=== PATIENT | female | born 1980 | race Hispanic/Latino ===

== ENCOUNTER 2021-01-04 22:20 | Inpatient (IN) | payer SELFPAY ==
--- OUTSIDE RECORDS SUMMARY | 2021-01-04 22:23 | XMS REPORT | Continuity of Care Document ---
:[address] [facility] t Address [address] [place] [address] Care Team Providers Name Role Phone Unavailable Unavailable Unavailable Problems This patient has no known problems. Allergies, Adverse Reactions, Alerts This patient has no known allergies or adverse reactions. Medications This patient has no known medications. Procedures This patient has no known procedures. Encounters Start End Encounter Admission Attending Care Care Encounter Source Date/Time Date/Time Type Type Clinicians Facility Department ID 2020-09-04 2020-09-04 Outpatient [facility] [id number] 00:00:00 00:00:00 [facility] 2020-02-01 2020-02-01 [facility] [id number] 09:00:00 09:00:00 [facility] Results This patient has no known results.
[2021-01-05] MEDS ORDERED: METHYLPREDNISOLONE 125 MG INJ ONE ×2 (00:16→20:25)
[2021-01-05] MEDS ORDERED: ONDANSETRON 4 MG (ODT) TAB ONE (00:16)
[2021-01-05] MEDS ORDERED: NA CHLORIDE 0.9% 1,000 ML ONE ×2 (00:16→02:34)
[2021-01-05] MEDS ORDERED: BENZONATATE 100 MG CAP PO ONE (00:16)
[2021-01-05 00:34] LABS: Absolute Lymphocytes (CBC) 0.9 K/uL (0.7-4.9); Basophils % 0.2 % (0-1.3); Hematocrit 41.6 % (36.0-45.0); MPV 7.9 fL (7.6-11.3); RBC Red Blood Cell Count 4.85 M/uL (3.86-4.86)
[2021-01-05 00:37] LABS: ALT/SGPT 219 U/L (12-78); AST/SGOT 191 U/L (15-37); Albumin 3.4 g/dL (3.4-5.0); Alkaline Phosphatase 111 U/L (45-117); BUN Blood Urea Nitrogen 9 mg/dL (7-18); Bicarbonate 25 mmol/L (21-32); Bilirubin Direct 0.1 mg/dL (0-0.2); Bilirubin Total 0.3 mg/dL (0.2-1.0); Ferritin 1669.7 ng/mL (8-388); Glucose Level 145 mg/dL (74-106); Magnesium 1.9 mg/dL (1.8-2.4); NT PRO-BNP 26 pg/mL (<125); Potassium 3.7 mmol/L (3.5-5.1); Protein, Total 7.9 g/dL (6.4-8.2); Sodium Level 138 mmol/L (136-145); Troponin (Emerg Dept Use Only) < 0.02 ng/mL (0.0-0.045)
[2021-01-05 00:39] LABS: Protime INR 1.15
[2021-01-05 01:31] LABS: Urine Blood 2+ (Negative); Urine Glucose Negative (Negative); Urine Protein 2+ (Negative); Urine Specific Gravity 1.025 (1.005-1.030); Urine pH 5.5 (5.0-7.0)
[2021-01-05 01:41] LABS: Urine Specific Gravity/Preg 1.025 (1.005-1.030)
[2021-01-05 02:28] LABS: Blood Gas Oxyhemoglobin 91.3 % (94-97); Blood O2 Saturation 92.8 % (92-98.5)
[2021-01-05] MEDS ORDERED: CEFTRIAXONE/SWI 1gm 1 GM/10 ML SYR ONE (02:34)
--- NOTE | 2021-01-05 02:35 | P.HP ---
Certification for Inpatient Patient admitted to: Inpatient With expected LOS: >2 Midnights Patient will require the following post-hospital care: None Practitioner: I am a practitioner with admitting privileges, knowledge of patient current condition, hospital course, and medical plan of care. Services: Services provided to patient in accordance with Admission requirements found in Title 42 Section 412.3 of the Code of Federal Regulations Patient History Date of Service: 01/05/21 Reason for admission: COVID-19 pneumonia History of Present Illness: 40-year-old female with history of asthma, obesity presents emergency department for shortness of breath. Patient reports increasing shortness of breath over the course of last 1 week. Patient tested positive for Covid today. Labs significant for glucose 145 ferritin 1669 AST 191 ALT 219 C-reactive protein 39 D-dimer 584 platelet count 110. Patient saturating in the high 80s on room air, currently tolerating nasal cannula at 2 to 3 L, ED provider wishes to admit for further evaluation and management. Allergies No Known Allergies Allergy (Unverified 10/03/16 08:47) Home Medications: Tramadol HCl [Ultram] 50 mg PO Q6HP PRN 10/03/16 - Past Medical/Surgical History -: Asthma -: Hysterectomy -: Psychosocial/ Personal History: Lives at home with children, single mother, unemployed - Family History Mother -: Diabetes - Social History Smoking Status: Never smoker Alcohol use: No CD- Drugs: No Caffeine use: Yes Place of Residence: Home Review of Systems 10-point ROS is otherwise unremarkable General: Weakness, Malaise Respiratory: Cough, Dry, Shortness of Breath, SOB with Excertion Physical Examination - Physical Exam General: Alert, In no apparent distress, Obese HEENT: Atraumatic, PERRLA, Mucous membr. moist/pink, EOMI, Sclerae nonicteric Neck: Supple, 2+ carotid pulse no bruit, No LAD, Without JVD or thyroid abnormality Respiratory: Normal air movement, Diminished Cardiovascular: Regular rate/rhythm, Normal S1 S2 Gastrointestinal: Normal bowel sounds, No tenderness Musculoskeletal: No tenderness Integumentary: No rashes Neurological: Normal gait, Normal speech, Normal strength at 5/5 x4 extr, Normal tone, Normal affect Lymphatics: No axilla or inguinal lymphadenopathy - Studies Laboratory Data (last 24 hrs) 01/04/21 23:59: PT 13.2 H, INR 1.15 01/04/21 23:59: WBC 5.00, Hgb 14.2, Hct 41.6, Plt Count 110 L 01/04/21 23:59: Sodium 138, Potassium 3.7, BUN 9, Creatinine 0.68, Glucose 145 H, Magnesium 1.9, Total Bilirubin 0.3, AST 191 H, ALT 219 H, Alkaline Phosphatase 111 Microbiology Data (last 24 hrs): 01/04/21 23:07 Nasopharnyx Influenza Type A Antigen Screen - Final 01/04/21 23:07 Nasopharnyx Influenza Type B Antigen Screen - Final 01/04/21 23:07 Throat Group A Streptococcus Rapid Screen - Final Assessment and Plan - Plan Assessment: Acute hypoxic respiratory failure secondary to COVID-19 pneumonia complicated with obesity, history of asthma Plan: Acute hypoxic respiratory failure secondary to COVID-19 pneumonia complicated with obesity, history of asthma: Continue with IV steroids, oral supplements, supplemental oxygen as needed, daily room air saturations, room air saturations for home O2. Patient's liver enzymes mildly elevated, patient not complaining of any abdominal pain possible related to fatty liver disease, urine nitrate positive no signs or symptoms of UTI at this time. Will hold off on antibiotic therapy. If patient maintains current clinical status could possibly be discharged in the next 24 to 48 hours on home oxygen. Patient concerned as she is a single mother and has problems obtaining care for her children at home. DVT PPX: Lovenox Code status: Full Discharge Plan: Home Plan to discharge in: 48 Hours - Advance Directives Does patient have a Living Will: No Does patient have a Durable POA for Healthcare: No - Code Status/Comfort Care Code Status Assessed: Yes (Full code) Critical Care: No Time Spent Managing Pts Care (In Minutes): 55
--- NOTE | 2021-01-05 02:40 | ER ---
Nurse's Notes [facility] Name: Latonya Ivy Age: 40 yrs Sex: Female : 1980 Arrival Date: 01/04/2021 Time: 22:20 Bed 15 Private MD: Diagnosis: Other viral pneumonia;Hypoxemia;SARS-associated coronavirus as the cause of diseases classified elsewhere;UTI/ Urinary tract infection, site not specified Presentation: 01/04 22:50 Chief complaint: Patient states: Pt stated difficulty breathing began around 12/29/20. vg1 Pt c/o cough that is productive/dry and shortness of breath upon exertion. States chest pain with deep inhalation and cough. Denies NVD. Coronavirus screen: Client denies travel out of the [place] in the last 14 days. Client presents with at least one sign or symptom that may indicate coronavirus-19. Standard/surgical mask placed on the client. Ebola Screen: Patient negative for fever greater than or equal to 101.5 degrees Fahrenheit, and additional compatible Ebola Virus Disease symptoms. Initial Sepsis Screen: Does the patient meet any 2 criteria? No. Patient's initial sepsis screen is negative. Does the patient have a suspected source of infection? No. Patient's initial sepsis screen is negative. Risk Assessment: Do you want to hurt yourself or someone else? Patient reports no desire to harm self or others. Onset of symptoms was December 29, 2020. 22:50 Method Of Arrival: Ambulatory vg1 22:50 Acuity: NILSON 3 vg1 Triage Assessment: 22:53 General: Appears in no apparent distress. uncomfortable, Behavior is calm, cooperative. vg1 Pain: Complains of pain in chest Pain does not radiate. Pain currently is 10 out of 10 on a pain scale. Respiratory: Reports shortness of breath on exertion cough that is productive, dry, Onset: The symptoms/episode began/occurred 12/29/20, the patient has moderate shortness of breath. 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 - Social history:: Smoking status: Patient denies any tobacco usage or history of. Screenin/31 00:12 Abuse screen: Denies threats or abuse. Nutritional screening: No deficits noted. ap3 Tuberculosis screening: No symptoms or risk factors identified. Fall Risk None identified. Assessment: 00:11 General: Appears uncomfortable, Behavior is calm, cooperative, appropriate for age. ap3 General: Reports chills for fever for feeling ill for fatigue for. Pain: Denies pain. Neuro: Level of Consciousness is awake, alert, obeys commands, Oriented to person, place, time, situation, Appropriate for age Moves all extremities. Gait is steady, Speech is normal. Cardiovascular: Capillary refill < 3 seconds Patient's skin is warm and dry. Rhythm is regular. Respiratory: Airway is patent Respiratory effort is even, unlabored, Respiratory pattern is regular, symmetrical, Breath sounds are clear in left posterior upper lobe and right posterior upper lobe Breath sounds are diminished in left posterior lower lobe and right posterior middle lobe. GI: No signs and/or symptoms were reported involving the gastrointestinal system. : No signs and/or symptoms were reported regarding the genitourinary system. 00:57 Reassessment: patient provided with urine specimen cup, wipes, bedside commode, and ap3 education on clean catch. patient verbalized understanding. 01:43 Reassessment: Patient and/or family updated on plan of care and expected duration. Pain ap3 level reassessed. Patient is alert, oriented x 3, equal unlabored respirations, skin warm/dry/pink. 02:21 Reassessment: RT at bedside. ap3 Vital Signs: 01/04 22:50 BP 108 / 69; Pulse 114; Resp 22; Temp 99.0(O); Pulse Ox 96% ; Weight 127.01 kg; Height vg1 5 ft. 4 in. (162.56 cm); Pain 10; 01/05 00:13 Pulse 99; Resp 19; Pulse Ox 97% on R/A; ap3 00:48 BP 96 / 67; Pulse 88; Resp 25; Pulse Ox 92% on R/A; ap3 01:43 BP 96 / 65; Pulse 83; Resp 21; Pulse Ox 94% on R/A; ap3 02:20 BP 100 / 83; Pulse 88; Pulse Ox 86% on R/A; ap3 02:20 Pulse Ox 92% on 4 lpm NC; ap3 07/30 22:50 Body Mass Index 48.06 (127.01 kg, 162.56 cm) vg1 ED Course: 01/04 22:20 Patient arrived in ED. bp1 22:53 Triage completed. vg1 22:53 Arm band placed on. EKG completed in triage. Results shown to MD. vg1 23:29 Awilda Linder, ALVIN is Primary Nurse. ap3 23:33 Deng Daugherty PA is PHCP. cp 23:33 Manjit Angelo MD is Attending Physician. cp 01/05 00:12 Patient has correct armband on for positive identification. Bed in low position. Call ap3 light in reach. Side rails up X2. Adult w/ patient. 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 Door closed. Noise minimized. 00:33 XRAY Chest (1 view) In Process Unspecified. EDMS 01:31 Urine collected: clean catch specimen, deborah colored, urine culture sent to lab. mw2 01:38 CT Chest For PE Angio In Process Unspecified. EDMS 02:23 Admitting physician to see patient. Respiratory care therapist to see patient. ap3 02:38 Addi White is Hospitalizing Provider. cp Administered Medications: 01/04 23:44 CANCELLED (Physician Discretion): Zofran (Ondansetron) 4 mg IVP once; over 2 minutes cp 01/05 00:09 Drug: NS 0.9% 1000 ml Route: IV; Rate: 1000 ml/hr; Site: right antecubital; ap3 02:18 Follow up: IV Status: Completed infusion; IV Intake: 1000ml ap3 00:09 Drug: Tessalon Perle (benzonatate) 200 mg Route: PO; ap3 02:17 Follow up: Response: No adverse reaction ap3 00:09 Drug: Ondansetron 4 mg Route: PO; ap3 02:17 Follow up: Response: No adverse reaction; Nausea is decreased ap3 00:10 Drug: SOLU-Medrol (methylPrednisoLONE) 125 mg Route: IVP; Site: right antecubital; ap3 02:17 Follow up: Response: No adverse reaction ap3 02:16 Drug: Rocephin (cefTRIAXone) 1 grams Route: IV; Rate: calculated rate; Site: right ap3 antecubital; 02:16 Drug: NS 0.9% 1000 ml Route: IV; Rate: 1 bolus; Site: right antecubital; ap3 Intake: 02:18 IV: 1000ml; Total: 1000ml. ap3 Outcome: 02:39 Decision to Hospitalize by Provider. cp 21:55 Patient left the ED. mw Signatures: Dispatcher [employer] EDMS Kiersten Ball RN RN mw Deng Daugherty PA PA cp Prokisch, Amanda, RN RN ap3 Do Pratt mw2 Whitley Rosario RN RN vg1 Radha Moscoso [facility]
--- NOTE | 2021-01-05 02:40 | EDPHYS ---
Physician Documentation [facility] Name: Latonya Ivy Age: 40 yrs Sex: Female : 1980 Arrival Date: 01/04/2021 Time: 22:20 Bed 15 Private MD: ED Physician Manjit Angelo HPI: 01/04 23:10 This 40 yrs old Female presents to ER via Ambulatory with complaints of cp Breathing Difficulty, Chest Pain. 23:10 The patient has shortness of breath at rest. Onset: The symptoms/episode began/occurred cp 6 day(s) ago. Duration: The symptoms are continuous, and are steadily getting worse. The patient's shortness of breath is aggravated by light activity. Associated signs and symptoms: Pertinent positives: chest pain, fever, Pertinent negatives: productive cough, vomiting. Severity of symptoms: in the emergency department the symptoms are unchanged despite home interventions. 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 - Social history:: Smoking status: Patient denies any tobacco usage or history of. ROS: 23:15 Constitutional: Positive for body aches, Negative for chills, fever, poor PO intake. cp 23:15 Eyes: Negative for injury, pain, redness, and discharge. cp 23:15 ENT: Negative for ear pain, sore throat, difficulty swallowing, difficulty handling secretions. 23:15 Cardiovascular: Positive for chest pain, Negative for edema. 23:15 Respiratory: Positive for cough, "sounds productive", shortness of breath, at rest. Negative for wheezing. 23:15 Abdomen/GI: Negative for abdominal pain, nausea, vomiting, and diarrhea. 23:15 Neuro: Negative for altered mental status, dizziness, headache, numbness, syncope, weakness. 23:15 All other systems are negative. Exam: 23:05 ECG was reviewed by the Attending Physician. cp 23:18 Constitutional: The patient appears in no acute distress, alert, awake, cp non-diaphoretic, non-toxic, well developed, well nourished, obese. 23:18 Head/Face: Normocephalic, atraumatic. cp 23:18 Eyes: Periorbital structures: appear normal, Pupils: equal, round, and reactive to light and accomodation, Extraocular movements: intact throughout, Conjunctiva: normal, no exudate, no injection, Sclera: no appreciated abnormality, Lids and lashes: appear normal, bilaterally. 23:18 ENT: External ear(s): are unremarkable, Nose: is normal, Mouth: Lips: moist, Oral mucosa: moist, Posterior pharynx: Airway: no evidence of obstruction, patent. 23:18 Neck: ROM/movement: is normal, is supple, no meningismus, no nuchal rigidity. 23:18 Chest/axilla: Inspection: normal, Palpation: crepitus, is not appreciated, tenderness, that is moderate, of the anterior aspect of right upper chest, anterior aspect of left upper chest and mid-sternal area. 23:18 Cardiovascular: Rate: tachycardic, Rhythm: regular, Heart sounds: murmur, not appreciated, Edema: is not appreciated, JVD: is not appreciated. 23:18 Respiratory: the patient does not display signs of respiratory distress, Respirations: labored breathing, that is mild, intercostal retractions, are absent, Breath sounds: bronchial sounds, that are moderate, are heard diffusely, stridor, is not appreciated, wheezing: is not appreciated. 23:18 Abdomen/GI: Inspection: abdomen appears normal, Palpation: abdomen is soft and non-tender, in all quadrants. 23:18 Back: ROM is normal. 23:18 Neuro: Orientation: to person, place \\T\\ time. Mentation: is normal, Cerebellar function: is grossly normal, Motor: moves all fours, strength is normal, Sensation: is normal. Vital Signs: 22:50 BP 108 / 69; Pulse 114; Resp 22; Temp 99.0(O); Pulse Ox 96% ; Weight 127.01 kg; Height vg1 5 ft. 4 in. (162.56 cm); Pain 1010; 01/05 00:13 Pulse 99; Resp 19; Pulse Ox 97% on R/A; ap3 00:48 BP 96 / 67; Pulse 88; Resp 25; Pulse Ox 92% on R/A; ap3 01:43 BP 96 / 65; Pulse 83; Resp 21; Pulse Ox 94% on R/A; ap3 02:20 BP 100 / 83; Pulse 88; Pulse Ox 86% on R/A; ap3 02:20 Pulse Ox 92% on 4 lpm NC; ap3 01/04 22:50 Body Mass Index 48.06 (127.01 kg, 162.56 cm) [facility] MDM: 01/04 23:38 Patient medically screened. 01/05 00:00 Differential diagnosis: asthma, Bronchitis Myocardial Infarction pneumonia, cp Pneumothorax pulmonary edema, Pulmonary Embolism Sepsis Unstable Angina. 01:31 Data reviewed: vital signs, nurses notes, lab test result(s), EKG, radiologic studies, cp plain films. Test interpretation: by ED physician or midlevel provider: ECG, chest xray shows bilateral pulmonary opacities. 02:35 Counseling: I had a detailed discussion with the patient and/or guardian regarding: the cp historical points, exam findings, and any diagnostic results supporting the discharge/admit diagnosis, lab results, radiology results, the need for further work-up and treatment in the hospital. 02:35 Data interpreted: panel monitor: rate is 88 beats/min, rhythm is regular, cp Interpretation: normal rate, normal rhythm, Pulse oximetry: on 4L(s) per nasal canula, is 92 %. Interpretation: borderline. Plan: O2 by Mask applied. Response to treatment: the patient's symptoms have mildly improved after treatment. 01/04 23:05 Order name: Flu; Complete Time: 00:43 [facility] 01/04 23:05 Order name: Strep; Complete Time: 00: [facility] 01/04 23:44 Order name: Basic Metabolic Panel; Complete Time: 00:43 01/05 00:44 Interpretation: Normal except: GLUC 145; CA 8.1. 01/04 23:44 Order name: CBC with Diff; Complete Time: 00:43 01/05 00:44 Interpretation: Normal except: GUS% 77.3; PLT 110. 01/04 23:44 Order name: LFT's; Complete Time: 00:43 01/05 00:44 Interpretation: Normal except: AST 191; ALT 219; GLOB 4.5; A/G 0.8. 01/04 23:44 Order name: Magnesium; Complete Time: 00:43 01/04 23:44 Order name: NT PRO-BNP; Complete Time: 00:43 01/04 23:44 Order name: PT-INR; Complete Time: 00:43 cp 01/04 23:44 Order name: Troponin (emerg Dept Use Only); Complete Time: 00:43 cp 01/04 23:44 Order name: D-Dimer; Complete Time: 00:43 cp 01/04 23:44 Order name: CRP; Complete Time: 00:43 cp 01/05 00:44 Interpretation: Abnormal: C-REACTIVE PROT 39.00. cp 01/04 23:44 Order name: Ferritin; Complete Time: 00:43 cp 01/05 00:27 Order name: Throat Culture EDMS 01/04 23:44 Order name: XRAY Chest (1 view) cp 01/04 23:44 Order name: EKG; Complete Time: 23:44 cp 01/05 00:45 Order name: CT Chest For PE Angio cp 01/05 00:52 Order name: SARS-COV-2 RT PCR; Complete Time: 02:39 EDMS 01/05 01:30 Order name: Urine Culture 01/05 01:31 Order name: Urine Dipstick-Ancillary; Complete Time: 02:39 EDMS 01/05 01:34 Order name: Urine --Ancillary (enter results); Complete Time: 02:39 mw2 01/05 01:38 Order name: ABG; Complete Time: 02:39 pkl 01/04 23:41 Order name: Urine Dipstick-Ancillary (obtain specimen); Complete Time: 01:27 cp 01/04 23:41 Order name: Urine Test (obtain specimen); Complete Time: 01:27 cp 01/04 23:44 Order name: Cardiac monitoring; Complete Time: 00:10 cp 01/04 23:44 Order name: EKG - Nurse/Tech; Complete Time: 00:10 cp 01/04 23:44 Order name: IV Saline Lock; Complete Time: 00:10 cp 01/04 23:44 Order name: Labs collected and sent; Complete Time: 00:10 cp 01/04 23:44 Order name: O2 Per Protocol; Complete Time: 00:10 cp 01/04 23:44 Order name: O2 Sat Monitoring; Complete Time: 00:10 cp EC/30 23:05 Rate is 115 beats/min. Rhythm is regular. WI interval is normal. QRS interval is cp normal. QT interval is normal. T waves are Inverted in lead III. Interpreted by me. Reviewed by me. Administered Medications: 23:44 CANCELLED (Physician Discretion): Zofran (Ondansetron) 4 mg IVP once; over 2 minutes cp 01/05 00:09 Drug: NS 0.9% 1000 ml Route: IV; Rate: 1000 ml/hr; Site: right antecubital; ap3 02:18 Follow up: IV Status: Completed infusion; IV Intake: 1000ml ap3 00:09 Drug: Tessalon Perle (benzonatate) 200 mg Route: PO; ap3 02:17 Follow up: Response: No adverse reaction ap3 00:09 Drug: Ondansetron 4 mg Route: PO; ap3 02:17 Follow up: Response: No adverse reaction; Nausea is decreased ap3 00:10 Drug: SOLU-Medrol (methylPrednisoLONE) 125 mg Route: IVP; Site: right antecubital; ap3 02:17 Follow up: Response: No adverse reaction ap3 02:16 Drug: Rocephin (cefTRIAXone) 1 grams Route: IV; Rate: calculated rate; Site: right ap3 antecubital; 02:16 Drug: NS 0.9% 1000 ml Route: IV; Rate: 1 bolus; Site: right antecubital; ap3 Disposition: 01/06 19:03 Co-signature as Attending Physician, Manjit Angelo MD. pkl Disposition Summary: 01/05/21 02:39 Hospitalization Ordered Hospitalization Status: Inpatient Admission cp Provider: Addi White cp Condition: Fair cp Problem: new cp Symptoms: have improved cp Bed/Room Type: Standard Location: [facility] ER HOLD(01/05/21 02:45) Room Assignment: ERHOLD-(01/05/21 02:45) Diagnosis - Other viral pneumonia cp - Hypoxemia cp - SARS-associated coronavirus as the cause of diseases classified elsewhere cp - UTI/ Urinary tract infection, site not specified cp Forms: - Medication Reconciliation Form cp - SBAR form cp Signatures: Dispatcher [employer] EDKiersten Devine RN RN mw Lam, Pin, MD MD pkl Deng Daugherty PA PA cp Awilda Linder RN RN ap3 Whitley Rosario RN RN vg1 Corrections: (The following items were deleted from the chart) 01/04 23:36 23:06 CORONAVIRUS+MR.LAB.BRZ ordered. EDMS EDMS 23:44 23:44 Zofran (Ondansetron) 4 mg IVP once; over 2 minutes ordered. garo wyman 01/05 02:45 02:39 Telemetry/MedSurg (Inpatient) cp mw 02:45 02:39 cp mw 02:50 02:21 UA MICROSCOPIC+U.LAB.BRZ ordered. EDMS EDMS
[2021-01-05 03:46] VITALS: BMI 50.8
[2021-01-05] MEDS: ACETAMINOPHEN 500 MG TAB PO PRN (05:31)
[2021-01-05] MEDS ORDERED: ACETAMINOPHEN 500 MG TAB ONE (05:53)
[2021-01-05] MEDS ORDERED: THIAMINE HCL 100 MG TABLET ONE (08:06)
[2021-01-05] MEDS ORDERED: ZINC SULFATE 220 MG CAP ONE (08:06)
[2021-01-05] MEDS ORDERED: METHYLPREDNISOLONE 40 MG INJ ONE (08:07)
[2021-01-05] MEDS ORDERED: ASCORBIC ACID 500 MG TABLET ONE ×2 (08:07→20:25)
[2021-01-05] MEDS ORDERED: ASPIRIN EC 81 MG TAB PO ONE (08:07)
[2021-01-05] MEDS ORDERED: VITAMIN D 1000 UNIT TAB ONE (08:07)
[2021-01-05] MEDS ORDERED: ENOXAPARIN 40 MG/0.4 ML SQ ONE (08:08)
--- NOTE | 2021-01-05 08:54 | RAD REPORT ---
EXAM DESCRIPTION: RAD - Chest Single View - 01/05/2021 12:34 am CLINICAL HISTORY: CHEST PAIN COMPARISON: No comparisons FINDINGS: Patchy airspace disease within the lungs bilaterally which is mild to moderate. The heart size is within normal limits.No acute osseous abnormality. No significant pleural effusions or pneumo thorax. IMPRESSION: Mild to moderate patchy bilateral airspace disease concerning for multifocal pneumonia.
[2021-01-05] MEDS: ZINC SULFATE 220 MG CAP PO SCH (09:00)
[2021-01-05] MEDS: VITAMIN D 1000 UNIT TAB PO SCH (09:00)
[2021-01-05] MEDS: ASCORBIC ACID 500 MG TABLET PO SCH ×4 (09:00→20:19)
[2021-01-05] MEDS: METHYLPREDNISOLONE 40 MG INJ IV SCH ×2 (09:00→20:19)
[2021-01-05] MEDS: THIAMINE HCL 100 MG TABLET PO SCH (09:00)
[2021-01-05] MEDS: ENOXAPARIN 40 MG/0.4 ML SQ SCH (09:00)
[2021-01-05] MEDS: ASPIRIN EC 81 MG TAB PO SCH (09:00)
[2021-01-05] MEDS ORDERED: PROMETHAZINE-DM 5 ML OSYR PO PRN (10:44)
[2021-01-05] MEDS ORDERED: IPRATROPIUM BROM 0.5MG/2.5ML IH PRN (11:17)
--- NOTE | 2021-01-05 11:19 | P.CNS ---
Date of Consult: 01/05/21 (PT consented to TV) Reason for Consult: COVID penumonia Chief Complaint: COVID-19 pneumonia History of Present Illness: AGE 40 AW COVID penumonai, HX of Asthma. Tested pso wks Allergies No Known Allergies Allergy (Verified 01/05/21 03:43) Home Medications: Albuterol Inhaler [Ventolin Inhaler*] 2 puff IH Q6HP PRN 01/05/21 Albuterol Neb [Proventil 0.083% Neb Soln] 1 amp NEB Q6HP PRN 01/05/21 - Past Medical/Surgical History Diabetic: No -: Asthma -: Hysterectomy -: Psychosocial/ Personal History: Lives at home with children, single mother, unemployed - Family History Mother Medical History: Diabetes - Social History Alcohol use: No CD- Drugs: No Caffeine use: Yes Place of Residence: Home Review of Systems General: Weakness Respiratory: Cough, Shortness of Breath Physical Examination Temp Pulse Resp BP Pulse Ox 98.1 F 72 22 H 94/72 92 01/05/21 03:00 01/05/21 08:00 01/05/21 03:30 01/05/21 08:00 01/05/21 08:00 General: Alert, In no apparent distress, Oriented x3, Mild distress Laboratory Data (last 24 hrs) 01/04/21 23:59: PT 13.2 H, INR 1.15 01/04/21 23:59: WBC 5.00, Hgb 14.2, Hct 41.6, Plt Count 110 L 01/04/21 23:59: Sodium 138, Potassium 3.7, BUN 9, Creatinine 0.68, Glucose 145 H, Magnesium 1.9, Total Bilirubin 0.3, AST 191 H, ALT 219 H, Alkaline Phosphatase 111 - Problems (1) Pneumonia due to COVID-19 virus Current Visit: Yes Status: Acute Plan: Age AW COVID penumonia / Stabel/ Poss DC home Am/Co severe COUGH CT angio noPE covid pneumonia/ poss DC AM
[2021-01-05] MEDS: PROMETH/COD 6.25/10MG SYRUP 5ML PO PRN ×2 (12:28→18:14)
[2021-01-05] MEDS ORDERED: PROMETH/COD 6.25/10MG SYRUP 5ML ONE ×2 (12:46→17:52)
--- NOTE | 2021-01-05 14:51 | P.PN ---
Date of Service: 01/05/21 Patient seen and examined. She is maintained on 3 L oxygen by nasal cannula. He is complaining of shortness of breath. Plan: Continue IV steroid and bronchodilators. On aspirin. Pulmonary input appreciated. Monitor oxygen requirement and possible Dc a.m. if patient remains stable on oxygen by nasal cannula.
[2021-01-05] MEDS ORDERED: APIXABAN 5 MG TABLET ONE (20:25)
[2021-01-05] MEDS ORDERED: ATORVASTATIN 20 MG TAB ONE (20:26)
--- NOTE | 2021-01-05 22:26 | RAD REPORT ---
EXAM DESCRIPTION: CT - Chest For Pe Angio - 01/05/2021 6:25 am CLINICAL HISTORY: The patient is 40 years old and is Female; Chest pain;Cough TECHNIQUE: Axial computed tomographic angiography images of the chest with intravenous contrast. S agittal and coronal reformatted images were created and reviewed. This CT exam was performed using one or more of the following dose reduction techniques: automated exposure control, adjustment of t he mA and/or kV according to patient size, and/or use of iterative reconstruction technique. MIP reconstructed images were created and reviewed. COMPARISON: No relevant prior studies available. FINDINGS: PULMONARY ARTERIES: There are no obvious filling defects identified within the pulmonary arteries to suggest pulmonary embolism. AORTA: No acute findings. No thoracic aortic aneurysm. LUNGS: Patchy groundglass infiltrates are present throughout the lungs. The tracheobronchial tree is widely patent. No mass. PLEURAL SPACE: Unremarkable. No significant effusion. No pneumothorax. HEART: Unremarkable. No cardiomegaly. No significant pericardial effusion. No evidence of R V dysfunction. THYROID: A 1.5 cm low attenuating nodule within the left lobe of the thyroid is present. BONES/JOINTS: No acute fracture. No dislocation. SOFT TISSUES: Unremarkable. LYMPH NODES: Unremarkable. No enlarged lymph nodes. LIVER: The liver is enlarged and diffusely fatty. IMPRESSION: 1. Commonly reported imaging features of (COVID-19 or viral) pneumonia are present. Ot her processes such as influenza pneumonia and organizing pneumonia, as can be seen with drug toxicity and connective tissue disease, can cause a similar imaging pattern. [id number] 2. No evidence of pulmonary embolism. 3. Left thyroid nodule. Recommend follow-up thyroid ultrasound. Electronically signed by: Agnieszka Britt MD 01/05/2021 2:08 AM CDT Due to temporary technical issues with the PACS/Fluency reporting system, reports are being signed by the in house radiologists without review as a courtesy to insure prompt reporting. The interpreting radiologist is fully responsible for the content of the report.
[2021-01-06] MEDS: MELATONIN 5 MG TABLET PO PRN ×2 (00:24→19:37)
[2021-01-06 07:32] LABS: Absolute Lymphocytes (CBC) 0.5 K/uL (0.7-4.9); Basophils % 0.2 % (0-1.3); Hematocrit 40.1 % (36.0-45.0); Lymphocytes % 7.3 % (15.3-44.8); MPV 7.5 fL (7.6-11.3); RBC Red Blood Cell Count 4.69 M/uL (3.86-4.86)
[2021-01-06 07:49] LABS: ALT/SGPT 164 U/L (12-78); AST/SGOT 90 U/L (15-37); Albumin 2.9 g/dL (3.4-5.0); Alkaline Phosphatase 106 U/L (45-117); BUN Blood Urea Nitrogen 10 mg/dL (7-18); Bicarbonate 25 mmol/L (21-32); Bilirubin Total 0.2 mg/dL (0.2-1.0); Ferritin 1488.8 ng/mL (8-388); Glucose Level 172 mg/dL (74-106); Magnesium 1.9 mg/dL (1.8-2.4); Potassium 4.2 mmol/L (3.5-5.1); Protein, Total 7.4 g/dL (6.4-8.2); Sodium Level 139 mmol/L (136-145)
[2021-01-06] MEDS: ENOXAPARIN 40 MG/0.4 ML SQ SCH (09:00)
[2021-01-06] MEDS: ASPIRIN EC 81 MG TAB PO SCH (09:00)
[2021-01-06] MEDS: VITAMIN D 1000 UNIT TAB PO SCH (09:35)
[2021-01-06] MEDS: ZINC SULFATE 220 MG CAP PO SCH (09:35)
[2021-01-06] MEDS: THIAMINE HCL 100 MG TABLET PO SCH (09:35)
[2021-01-06] MEDS: ASCORBIC ACID 500 MG TABLET PO SCH ×4 (09:35→19:37)
[2021-01-06] MEDS: METHYLPREDNISOLONE 40 MG INJ IV SCH ×2 (09:35→19:37)
[2021-01-06 10:11] LABS: Blood Morphology Comment NOT SEEN (NOT SEEN); Platelet Estimate ADEQ
[2021-01-06] MEDS: APIXABAN 5 MG TABLET PO SCH ×2 (10:42→19:37)
[2021-01-06] MEDS: PROMETH/COD 6.25/10MG SYRUP 5ML PO PRN ×2 (11:41→19:38)
--- NOTE | 2021-01-06 15:55 | P.PN ---
Subjective Date of Service: 01/06/21 Chief Complaint: COVID-19 pneumonia Patient states he feels better today. Oxygen weaned down from 4 L to 2 L today. Physical Examination - Vital Signs Temperature: 97.9 F Blood Pressure: 109/66 Pulse: 80 Respirations: 22 Pulse Ox (%): 93 - Physical Exam General: In no apparent distress, Obese HEENT: Other (Oxygen by nasal cannula) Neck: JVD not distended Respiratory: Other (Nonlabored breathing) Cardiovascular: No edema, Regular rate/rhythm Gastrointestinal: Soft and benign, Non-distended Musculoskeletal: No swelling Integumentary: No rashes Neurological: Normal strength at 5/5 x4 extr - Studies Microbiology Data (last 24 hrs): 01/04/21 23:07 Throat Culture & Sensitivity - Final NORMAL UPPER RESPIRATORY TAMMY GROWN. Assessment And Plan - Current Problems (Diagnosis) (1) Acute respiratory failure with hypoxia Current Visit: Yes Status: Acute (2) Pneumonia due to COVID-19 virus Current Visit: Yes Status: Acute - Plan Continue IV steroid, bronchodilators, vitamin supplementation for COVID protocol. Wean oxygen as tolerated. Patient is clinically improving. Arranged for home oxygen. Possible discharge tomorrow.
[2021-01-07 03:57] LABS: Absolute Lymphocytes (CBC) 0.6 K/uL (0.7-4.9); Hematocrit 40.1 % (36.0-45.0); MPV 7.5 fL (7.6-11.3); RBC Red Blood Cell Count 4.71 M/uL (3.86-4.86)
[2021-01-07 04:32] LABS: ALT/SGPT 130 U/L (12-78); AST/SGOT 58 U/L (15-37); Albumin 2.8 g/dL (3.4-5.0); Alkaline Phosphatase 108 U/L (45-117); BUN Blood Urea Nitrogen 12 mg/dL (7-18); Bicarbonate 28 mmol/L (21-32); Bilirubin Total 0.3 mg/dL (0.2-1.0); Ferritin 1105.9 ng/mL (8-388); Glucose Level 157 mg/dL (74-106); Potassium 4.1 mmol/L (3.5-5.1); Protein, Total 7.3 g/dL (6.4-8.2); Sodium Level 142 mmol/L (136-145)
[2021-01-07] MEDS: PROMETH/COD 6.25/10MG SYRUP 5ML PO PRN ×2 (04:35→19:50)
[2021-01-07] MEDS: METHYLPREDNISOLONE 40 MG INJ IV SCH ×2 (08:07→19:50)
[2021-01-07] MEDS: THIAMINE HCL 100 MG TABLET PO SCH (08:08)
[2021-01-07] MEDS: ASCORBIC ACID 500 MG TABLET PO SCH ×4 (08:08→19:51)
[2021-01-07] MEDS: VITAMIN D 1000 UNIT TAB PO SCH (08:08)
[2021-01-07] MEDS: ZINC SULFATE 220 MG CAP PO SCH (08:08)
[2021-01-07] MEDS: APIXABAN 5 MG TABLET PO SCH ×2 (08:09→19:50)
--- NOTE | 2021-01-07 17:54 | P.PN ---
Subjective Date of Service: 01/07/21 Chief Complaint: COVID-19 pneumonia No major changes from yesterday. Patient requiring between 3-4 L of oxygen by nasal cannula and maintaining oxygen saturation between 90-94%. Physical Examination - Vital Signs Temperature: 97.3 F Blood Pressure: 112/64 Pulse: 68 Respirations: 18 Pulse Ox (%): 90 - Physical Exam General: In no apparent distress HEENT: Other (Oxygen by nasal cannula) Neck: JVD not distended Respiratory: Other (Nonlabored breathing) Cardiovascular: Regular rate/rhythm, Normal S1 S2 Gastrointestinal: Soft and benign, Non-distended Musculoskeletal: No swelling Integumentary: No rashes Assessment And Plan - Current Problems (Diagnosis) (1) Acute respiratory failure with hypoxia Current Visit: Yes Status: Acute (2) Pneumonia due to COVID-19 virus Current Visit: Yes Status: Acute - Plan Continue IV steroid, bronchodilators, vitamin supplementation for COVID protocol. Wean oxygen as tolerated. Patient is clinically improving. Arranged for home oxygen. Activity as tolerated.
[2021-01-07] MEDS: MELATONIN 5 MG TABLET PO PRN (19:50)
[2021-01-08] MEDS: PROMETH/COD 6.25/10MG SYRUP 5ML PO PRN ×2 (00:24→20:03)
[2021-01-08] MEDS: ACETAMINOPHEN 500 MG TAB PO PRN ×2 (01:24→20:02)
[2021-01-08] MEDS: ONDANSETRON 4 MG/2 ML VIAL IV PRN (05:33)
[2021-01-08 07:06] LABS: Absolute Lymphocytes (CBC) 0.7 K/uL (0.7-4.9); Basophils % 0.1 % (0-1.3); Hematocrit 39.9 % (36.0-45.0); Lymphocytes % 6.1 % (15.3-44.8); MPV 7.1 fL (7.6-11.3); RBC Red Blood Cell Count 4.64 M/uL (3.86-4.86)
[2021-01-08 07:27] LABS: ALT/SGPT 119 U/L (12-78); AST/SGOT 67 U/L (15-37); Albumin 2.6 g/dL (3.4-5.0); Alkaline Phosphatase 99 U/L (45-117); BUN Blood Urea Nitrogen 17 mg/dL (7-18); Bicarbonate 29 mmol/L (21-32); Bilirubin Total 0.4 mg/dL (0.2-1.0); Glucose Level 174 mg/dL (74-106); Magnesium 2.3 mg/dL (1.8-2.4); Potassium 4.2 mmol/L (3.5-5.1); Protein, Total 7.3 g/dL (6.4-8.2); Sodium Level 142 mmol/L (136-145)
[2021-01-08] MEDS: APIXABAN 5 MG TABLET PO SCH ×2 (07:48→20:03)
[2021-01-08] MEDS: THIAMINE HCL 100 MG TABLET PO SCH (07:48)
[2021-01-08] MEDS: ZINC SULFATE 220 MG CAP PO SCH (07:48)
[2021-01-08] MEDS: ASCORBIC ACID 500 MG TABLET PO SCH ×4 (07:48→20:03)
[2021-01-08] MEDS: METHYLPREDNISOLONE 40 MG INJ IV SCH ×2 (07:48→20:03)
[2021-01-08] MEDS: VITAMIN D 1000 UNIT TAB PO SCH (07:48)
--- NOTE | 2021-01-08 15:56 | P.PN ---
Subjective Date of Service: 01/08/21 Chief Complaint: COVID-19 pneumonia Subjective: Other (feels about the same today, no new complaints, continues with SOB/WIGGINS, cough. Up to 6L NC overnight) Review of Systems 10-point ROS is otherwise unremarkable Physical Examination - Vital Signs Temperature: 97.6 F Blood Pressure: 128/67 Pulse: 63 Respirations: 36 Pulse Ox (%): 92 Assessment & Plan Physician Review Additional Text: Physical Exam General: In no apparent distress, AAOx3 HEENT: normal conjunctiva, sclera and itf Neck: JVD not distended Respiratory: Other (Nonlabored breathing) Cardiovascular: Regular rate/rhythm, Normal S1 S2 Gastrointestinal: Soft and benign, Non-distended Musculoskeletal: No swelling Integumentary: No rashes Assessment And Plan acute hypoxemic respiratory failure secondary to covid-19 pneumonia continue IV stereroiontinue IV steroid, bronchodilators, vitamin supplementation for COVID protocol. Wean oxygen as tolerated. Patient was clinicall improved, however seems to be doing worse today Arranged for home oxygen. Activity as tolerated. 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
[2021-01-08] MEDS: MORPHINE 2 MG/ML SYR IV PRN (19:21)
[2021-01-08] MEDS: MELATONIN 5 MG TABLET PO PRN (20:03)
[2021-01-09] MEDS: MORPHINE 2 MG/ML SYR IV PRN ×2 (02:10→23:23)
[2021-01-09 03:51] LABS: Hematocrit 39.3 % (36.0-45.0); MPV 7.1 fL (7.6-11.3); RBC Red Blood Cell Count 4.57 M/uL (3.86-4.86)
[2021-01-09 04:16] LABS: BUN Blood Urea Nitrogen 21 mg/dL (7-18); Bicarbonate 29 mmol/L (21-32); Ferritin 1081.5 ng/mL (8-388); Glucose Level 196 mg/dL (74-106); Magnesium 2.5 mg/dL (1.8-2.4); Potassium 4.4 mmol/L (3.5-5.1); Sodium Level 142 mmol/L (136-145)
[2021-01-09] MEDS: METHYLPREDNISOLONE 40 MG INJ IV SCH (08:21)
[2021-01-09] MEDS: ASCORBIC ACID 500 MG TABLET PO SCH ×4 (08:21→21:03)
[2021-01-09] MEDS: VITAMIN D 1000 UNIT TAB PO SCH (08:21)
[2021-01-09] MEDS: ZINC SULFATE 220 MG CAP PO SCH (08:21)
[2021-01-09] MEDS: THIAMINE HCL 100 MG TABLET PO SCH (08:21)
[2021-01-09] MEDS: APIXABAN 5 MG TABLET PO SCH ×2 (08:21→21:03)
--- NOTE | 2021-01-09 08:54 | RAD REPORT ---
EXAM DESCRIPTION: RAD - Chest Single View - 01/09/2021 4:58 am CLINICAL HISTORY: worsening hypoxia, covid Chest pain. COMPARISON: Chest Single View dated 01/05/2021 FINDINGS: Portable technique limits examination quality. Moderate to significant bilateral pulmonary opacities are seen, moderately progressive since the comp arative study. The heart is upper limit normal in size. No displaced fractures. IMPRESSION: Moderate worsening in lung aeration seen since comparative study.
--- NOTE | 2021-01-09 13:00 | P.PN ---
Subjective Date of Service: 01/09/21 Chief Complaint: COVID-19 pneumonia Subjective: Worsening (feels about the same, oxygen requirement increased yesterday, feeling short of breath - significant hypoxia when getting up to bedside commode, voiding ok, slight constipation, +flatus) Review of Systems 10-point ROS is otherwise unremarkable Physical Examination - Vital Signs Temperature: 97.4 F Blood Pressure: 111/66 Pulse: 54 Respirations: 29 Pulse Ox (%): 89 Assessment & Plan Physician Review Additional Text: Physical Exam General: AAOx3, mod distress HEENT: normal conjunctiva, sclera anicteric Respiratory: labored respirations on HFNC Cardiovascular: Regular rate/rhythm, Normal S1 S2 Gastrointestinal: Soft and benign, Non-distended Musculoskeletal: No swelling Integumentary: No rashes Assessment And Plan acute hypoxemic respiratory failure secondary to covid-19 pneumonia continue IV stereroids,bronchodilators, vitamin supplementation for COVID protocol. Wean oxygen as tolerated. worsening over last 24hrs, pt is ~10 days into COVID symptoms pulmonology consulted, following inflammatory markers increased. CXR worsening continue eliquis Code: full Dispo: hospitalization > 2 days Time Spent Managing Pts Care (In Minutes): 35
[2021-01-09] MEDS: METHYLPREDNISOLONE 125 MG INJ IV SCH ×2 (13:18→21:03)
[2021-01-10 04:57] LABS: Absolute Lymphocytes (CBC) 0.9 K/uL (0.7-4.9); Basophils % 0.1 % (0-1.3); Hematocrit 41.3 % (36.0-45.0); Lymphocytes % 7.5 % (15.3-44.8)
[2021-01-10 05:22] LABS: BUN Blood Urea Nitrogen 23 mg/dL (7-18); Bicarbonate 29 mmol/L (21-32); C-Reactive Protein 7.71 mg/L (<3.00); Ferritin 955.5 ng/mL (8-388); Glucose Level 203 mg/dL (74-106); Magnesium 2.6 mg/dL (1.8-2.4); Potassium 4.4 mmol/L (3.5-5.1); Sodium Level 142 mmol/L (136-145)
[2021-01-10 06:03] LABS: Blood Morphology Comment NOT SEEN (NOT SEEN); Platelet Estimate ADEQ
--- NOTE | 2021-01-10 08:30 | P.PN ---
Subjective Date of Service: 01/10/21 Chief Complaint: COVID-19 pneumonia Subjective: No new changes (requiring high levels of O2, doesn't feel much different compared to yesteday, significant dyspnea on exertion, hypoxic with just getting up to bedside commode.) Review of Systems 10-point ROS is otherwise unremarkable Physical Examination - Vital Signs Temperature: 97.5 F Blood Pressure: 127/75 Pulse: 52 Respirations: 30 Pulse Ox (%): 89 Assessment & Plan Physician Review Additional Text: Physical Exam General: AAOx3, mod distress, fatigued HEENT: normal conjunctiva, sclera anicteric Respiratory: mildly labored respirations on HFNC Cardiovascular: Regular rate/rhythm, Normal S1 S2 Gastrointestinal: Soft, mild epigastric discomfort, non-distended Musculoskeletal: No swelling Integumentary: No rashes Assessment And Plan acute hypoxemic respiratory failure secondary to covid-19 pneumonia continue IV stereroids, bronchodilators, vitamin supplementation for COVID protocol. Wean oxygen as tolerated. pulmonology consulted, following inflammatory markers increased. CXR worsened on 01/09 slight bandemia today add levaquin for empiric coverage, recheck UA, check procal continue eliquis abd discomfort likely from coughing fits, possible gerd, add protonix Code: full Dispo: hospitalization > 2 days Time Spent Managing Pts Care (In Minutes): 35
[2021-01-10] MEDS: VITAMIN D 1000 UNIT TAB PO SCH (08:52)
[2021-01-10] MEDS: ASCORBIC ACID 500 MG TABLET PO SCH ×4 (08:52→20:01)
[2021-01-10] MEDS: THIAMINE HCL 100 MG TABLET PO SCH (08:52)
[2021-01-10] MEDS: ZINC SULFATE 220 MG CAP PO SCH (08:52)
[2021-01-10] MEDS: METHYLPREDNISOLONE 125 MG INJ IV SCH ×3 (08:52→20:01)
[2021-01-10] MEDS: APIXABAN 5 MG TABLET PO SCH ×2 (08:52→20:01)
[2021-01-10] MEDS: BENZONATATE 100 MG CAP PO PRN (08:52)
[2021-01-10] MEDS ORDERED: Levofloxacin 750mg IV 750 MG/150 ML BAG IV SCH (09:00)
[2021-01-10 10:53] LABS: Urine Appearance CLEAR (Clear); Urine Bilirubin NEGATIVE (Negative); Urine Blood TRACE (Negative); Urine Color YELLOW (Yellow); Urine Glucose NEGATIVE (Negative); Urine Protein NEGATIVE (Negative); Urine Specific Gravity 1.025 (1.005-1.030)
[2021-01-10 10:57] LABS: Urine Microscopic Reflex ORDER UMIC
[2021-01-10 11:17] LABS: Urine Bacteria >50 /HPF (<20); Urine Mucus MOD /HPF (NONE SEEN); Urine RBC <5 /HPF (NONE SEEN)
[2021-01-10] MEDS ORDERED: SODIUM CHLORIDE 0.9% 10ML INJ IV PRN (12:56)
--- NOTE | 2021-01-10 15:33 | P.PN ---
Subjective Date of Service: 01/10/21 Chief Complaint: COVID-19 pneumonia NCon high concentration of O2 Review of Systems General: Weakness Respiratory: Shortness of Breath Physical Examination - Vital Signs Temperature: 97.5 F Blood Pressure: 127/75 Pulse: 52 Respirations: 30 Pulse Ox (%): 89 - Physical Exam General: Alert, Oriented x3, Mild distress Assessment & Plan - Problems (Diagnosis) (1) Pneumonia due to COVID-19 virus Current Visit: Yes Status: Acute Plan: Resp failure Very hypoxic/ Avoid antibiotics/ Avoidi PPi/
[2021-01-10] MEDS: IVERMECTIN 3 MG TABLET PO SCH (18:21)
[2021-01-10] MEDS ORDERED: PANTOPRAZOLE 40 MG INJ IVP SCH (21:00)
[2021-01-11 04:26] LABS: Absolute Lymphocytes (CBC) 0.9 K/uL (0.7-4.9); Basophils % 0.1 % (0-1.3); Hematocrit 41.5 % (36.0-45.0); Lymphocytes % 8.6 % (15.3-44.8); MPV 7.2 fL (7.6-11.3); RBC Red Blood Cell Count 4.82 M/uL (3.86-4.86)
[2021-01-11 04:41] LABS: BUN Blood Urea Nitrogen 24 mg/dL (7-18); Bicarbonate 29 mmol/L (21-32); Ferritin 792.1 ng/mL (8-388); Glucose Level 223 mg/dL (74-106); Magnesium 2.6 mg/dL (1.8-2.4); Potassium 4.3 mmol/L (3.5-5.1); Sodium Level 139 mmol/L (136-145)
[2021-01-11 04:45] LABS: C-Reactive Protein < 2.90 mg/L (<3.00)
[2021-01-11] MEDS: ASCORBIC ACID 500 MG TABLET PO SCH ×4 (08:50→20:57)
[2021-01-11] MEDS: ZINC SULFATE 220 MG CAP PO SCH (08:50)
[2021-01-11] MEDS: APIXABAN 5 MG TABLET PO SCH ×2 (08:50→20:57)
[2021-01-11] MEDS: METHYLPREDNISOLONE 125 MG INJ IV SCH ×2 (08:50→12:16)
[2021-01-11] MEDS: THIAMINE HCL 100 MG TABLET PO SCH (08:51)
[2021-01-11] MEDS: VITAMIN D 1000 UNIT TAB PO SCH (08:51)
--- NOTE | 2021-01-11 08:58 | P.PN ---
Subjective Date of Service: 01/11/21 Chief Complaint: COVID-19 pneumonia Subjective: Improving (feels slightly better, on 85% fio2, inflammatory markers better) Review of Systems 10-point ROS is otherwise unremarkable Physical Examination - Vital Signs Temperature: 98.7 F Blood Pressure: 157/77 Pulse: 86 Respirations: 20 Pulse Ox (%): 91 Assessment & Plan Physician Review Additional Text: Physical Exam General: AAOx3, fatigued HEENT: normal conjunctiva, sclera anicteric Respiratory: mildly labored respirations on HFNC Cardiovascular: Regular rate/rhythm, Normal S1 S2 Gastrointestinal: Soft, nontender, nondistended Musculoskeletal: No swelling Integumentary: No rashes Assessment And Plan acute hypoxemic respiratory failure secondary to covid-19 pneumonia continue IV steroids, bronchodilators, vitamin supplementation for COVID protocol. Wean oxygen as tolerated. pulmonology consulted, following inflammatory markers increased. CXR worsened on 01/09 UA and procal negative, no antibiotics continue jonatan feels slightly better today Code: full Dispo: hospitalization > 2 days Time Spent Managing Pts Care (In Minutes): 40
[2021-01-11] MEDS: METHYLPREDNISOLONE 40 MG INJ IV SCH (20:57)
[2021-01-12 04:39] LABS: BUN Blood Urea Nitrogen 28 mg/dL (7-18); Bicarbonate 28 mmol/L (21-32); Ferritin 726.9 ng/mL (8-388); Glucose Level 225 mg/dL (74-106); Magnesium 2.4 mg/dL (1.8-2.4); Potassium 4.3 mmol/L (3.5-5.1); Sodium Level 139 mmol/L (136-145)
--- NOTE | 2021-01-12 07:39 | P.PN ---
Subjective Date of Service: 01/12/21 Chief Complaint: COVID-19 pneumonia Subjective: Improving (feeling a little better this morning, feels like can move more air, no nausea/vomiting) Review of Systems 10-point ROS is otherwise unremarkable Physical Examination - Vital Signs Temperature: 97.9 F Blood Pressure: 131/74 Pulse: 49 Respirations: 20 Pulse Ox (%): 93 Assessment & Plan Physician Review Additional Text: Physical Exam General: AAOx3, fatigued HEENT: normal conjunctiva, sclera anicteric Respiratory: labored respirations on HFNC, shallow respirations Cardiovascular: Regular rate/rhythm, Normal S1 S2 Gastrointestinal: Soft, nontender, nondistended Neuro: normal speech/affect, moving all extremities Assessment And Plan acute hypoxemic respiratory failure secondary to covid-19 pneumonia Steroid-induced hyperglycemia continue IV steroids, bronchodilators, vitamin supplementation for COVID protocol. Wean oxygen as tolerated. pulmonology consulted, following inflammatory markers improving CXR worsened on 01/09 UA and procal negative, no antibiotics continue jonatan feels slightly better today Appears very fatigued, has not gotten out of bed in the last day or 2, PT consulted Code: full Dispo: hospitalization > 2 days Time Spent Managing Pts Care (In Minutes): 35
[2021-01-12] MEDS: METHYLPREDNISOLONE 40 MG INJ IV SCH ×3 (07:54→20:32)
[2021-01-12] MEDS: ASCORBIC ACID 500 MG TABLET PO SCH ×4 (07:54→20:32)
[2021-01-12] MEDS: ZINC SULFATE 220 MG CAP PO SCH (07:55)
[2021-01-12] MEDS: VITAMIN D 1000 UNIT TAB PO SCH (07:55)
[2021-01-12] MEDS: THIAMINE HCL 100 MG TABLET PO SCH (07:55)
[2021-01-12] MEDS: BENZONATATE 100 MG CAP PO PRN ×2 (07:55→16:18)
[2021-01-12] MEDS: APIXABAN 5 MG TABLET PO SCH ×2 (07:55→20:32)
[2021-01-12] MEDS ORDERED: POLYETHYL GLY 3350 17 GM/DOSE PO PRN (07:57)
[2021-01-12] MEDS: IVERMECTIN 3 MG TABLET PO SCH (16:17)
[2021-01-13 04:21] LABS: Absolute Lymphocytes (CBC) 1.1 K/uL (0.7-4.9); Basophils % 0.1 % (0-1.3); Hematocrit 42.2 % (36.0-45.0); Lymphocytes % 7.2 % (15.3-44.8); MPV 7.5 fL (7.6-11.3); RBC Red Blood Cell Count 4.95 M/uL (3.86-4.86)
[2021-01-13] MEDS: THIAMINE HCL 100 MG TABLET PO SCH (07:38)
[2021-01-13] MEDS: ZINC SULFATE 220 MG CAP PO SCH (07:38)
[2021-01-13] MEDS: ASCORBIC ACID 500 MG TABLET PO SCH ×4 (07:38→19:46)
[2021-01-13] MEDS: VITAMIN D 1000 UNIT TAB PO SCH (07:38)
[2021-01-13] MEDS: APIXABAN 5 MG TABLET PO SCH ×2 (07:39→19:46)
[2021-01-13] MEDS: METHYLPREDNISOLONE 40 MG INJ IV SCH ×3 (07:39→19:46)
[2021-01-13] MEDS: BENZONATATE 100 MG CAP PO PRN (07:39)
--- NOTE | 2021-01-13 08:07 | RAD REPORT ---
EXAM DESCRIPTION: RAD - Chest Single View - 01/13/2021 5:48 am CLINICAL HISTORY: hypoxia, COVID f/u COMPARISON: Chest Single View dated 01/09/2021; Chest Single View dated 01/05/2021 FINDINGS: Improved aeration of the lungs though with residual multifocal airspace disease. The heart size is within normal limits.No acute osseous abnormality. No significant pleural effusions or pneum othorax. IMPRESSION: Improved aeration of the lungs compared with 01/09/2021 though there are still residual multifocal airspace opacities presumably related to pneumonia.
--- NOTE | 2021-01-13 11:51 | P.PN ---
Subjective Date of Service: 01/13/21 Chief Complaint: COVID-19 pneumonia Subjective: Improving Cont to wezn down on O2 Better Review of Systems General: Weakness Respiratory: Shortness of Breath Physical Examination - Vital Signs Temperature: 97.1 F Blood Pressure: 107/54 Pulse: 74 Respirations: 16 Pulse Ox (%): 96 Assessment & Plan - Problems (Diagnosis) (1) Pneumonia due to COVID-19 virus Current Visit: Yes Status: Acute Plan: CW decreasing Fio2/ titrate sat to 90%/CXRY improved
[2021-01-13] MEDS: PROMETH/COD 6.25/10MG SYRUP 5ML PO PRN ×2 (16:21→20:49)
--- NOTE | 2021-01-13 18:18 | P.PN ---
Subjective Date of Service: 01/13/21 Chief Complaint: COVID-19 pneumonia Subjective: Improving (feeling better) Physical Examination - Vital Signs Temperature: 96.9 F Blood Pressure: 111/70 Pulse: 61 Respirations: 24 Pulse Ox (%): 96 Assessment & Plan Physician Review Additional Text: Physical Exam General: AAOx3, sitting up eating HEENT: normal conjunctiva, sclera anicteric Respiratory: nonlabored respirations on HFNC, shallow respirations Cardiovascular: Regular rate/rhythm, Normal S1 S2 Gastrointestinal: Soft, nontender, nondistended Neuro: normal speech/affect, moving all extremities Assessment And Plan acute hypoxemic respiratory failure secondary to covid-19 pneumonia Steroid-induced hyperglycemia continue IV steroids, bronchodilators, vitamin supplementation for COVID protocol. Wean oxygen as tolerated. pulmonology consulted, following inflammatory markers improving CXR worsened on 01/09, improved 01/13 UA and procal negative, no antibiotics continue jonatan feels slightly better today PT consulted, improved Code: full Dispo: hospitalization > 2 days Time Spent Managing Pts Care (In Minutes): 35
[2021-01-13] MEDS: MORPHINE 2 MG/ML SYR IV PRN (21:15)
[2021-01-14] MEDS: ONDANSETRON 4 MG/2 ML VIAL IV PRN (01:18)
--- NOTE | 2021-01-14 06:45 | P.PN ---
Subjective Date of Service: 01/14/21 Chief Complaint: COVID-19 pneumonia Subjective: Improving (breathing more comfortably, O2 requirement decreasing, no new complaints) Review of Systems 10-point ROS is otherwise unremarkable Physical Examination - Vital Signs Temperature: 97 F Blood Pressure: 126/71 Pulse: 55 Respirations: 19 Pulse Ox (%): 93 Assessment & Plan Physician Review Additional Text: Physical Exam General: AAOx3 HEENT: normal conjunctiva, sclera anicteric Respiratory: nonlabored respirations on HFNC, shallow respirations Cardiovascular: Regular rate/rhythm, Normal S1 S2 Gastrointestinal: Soft, nontender, nondistended Neuro: normal speech/affect, moving all extremities Assessment And Plan acute hypoxemic respiratory failure secondary to covid-19 pneumonia Steroid-induced hyperglycemia continue IV steroids, bronchodilators, vitamin supplementation for COVID protocol. Wean oxygen as tolerated. pulmonology consulted, following inflammatory markers improving CXR worsened on 01/09, improved 01/13 UA and procal negative, no antibiotics continue jonatan feels slightly better today PT consulted, improved Code: full Dispo: hospitalization > 2 days Time Spent Managing Pts Care (In Minutes): 35
[2021-01-14 07:46] LABS: Hematocrit 40.7 % (36.0-45.0); MPV 7.4 fL (7.6-11.3); RBC Red Blood Cell Count 4.76 M/uL (3.86-4.86)
[2021-01-14 08:25] LABS: ALT/SGPT 149 U/L (12-78); AST/SGOT 26 U/L (15-37); Albumin 2.7 g/dL (3.4-5.0); Alkaline Phosphatase 89 U/L (45-117); BUN Blood Urea Nitrogen 22 mg/dL (7-18); Bicarbonate 28 mmol/L (21-32); Bilirubin Total 0.4 mg/dL (0.2-1.0); Ferritin 579.3 ng/mL (8-388); Glucose Level 212 mg/dL (74-106); Potassium 4.4 mmol/L (3.5-5.1); Protein, Total 6.6 g/dL (6.4-8.2); Sodium Level 136 mmol/L (136-145)
[2021-01-14] MEDS: ZINC SULFATE 220 MG CAP PO SCH (08:25)
[2021-01-14] MEDS: ASCORBIC ACID 500 MG TABLET PO SCH ×4 (08:25→19:50)
[2021-01-14] MEDS: THIAMINE HCL 100 MG TABLET PO SCH (08:25)
[2021-01-14] MEDS: VITAMIN D 1000 UNIT TAB PO SCH (08:25)
[2021-01-14] MEDS: APIXABAN 5 MG TABLET PO SCH ×2 (08:25→19:50)
[2021-01-14] MEDS: METHYLPREDNISOLONE 40 MG INJ IV SCH ×3 (08:26→19:50)
[2021-01-14 08:42] LABS: C-Reactive Protein < 2.90 mg/L (<3.00)
[2021-01-14] MEDS: PROMETH/COD 6.25/10MG SYRUP 5ML PO PRN ×2 (16:59→22:01)
[2021-01-14] MEDS: BENZONATATE 100 MG CAP PO PRN (19:50)
[2021-01-14] MEDS: MELATONIN 5 MG TABLET PO PRN (19:50)
--- NOTE | 2021-01-14 20:33 | P.PN ---
Subjective Date of Service: 01/14/21 Chief Complaint: COVID-19 pneumonia PT is improving Wean down to NC plan for discharge Review of Systems Respiratory: Shortness of Breath Physical Examination - Vital Signs Temperature: 97 F Blood Pressure: 126/71 Pulse: 55 Respirations: 19 Pulse Ox (%): 93 - Physical Exam General: Alert, In no apparent distress, Oriented x3 Assessment & Plan - Problems (Diagnosis) (1) Pneumonia due to COVID-19 virus Current Visit: Yes Status: Acute Plan: Improving change ot Nelsy dotson DC home am
[2021-01-15 07:26] LABS: Absolute Lymphocytes (CBC) 1.2 K/uL (0.7-4.9); Basophils % 0.1 % (0-1.3); Hematocrit 42.3 % (36.0-45.0); Lymphocytes % 5.7 % (15.3-44.8); MPV 7.7 fL (7.6-11.3); RBC Red Blood Cell Count 4.97 M/uL (3.86-4.86)
[2021-01-15 07:46] LABS: ALT/SGPT 139 U/L (12-78); AST/SGOT 24 U/L (15-37); Albumin 2.9 g/dL (3.4-5.0); Alkaline Phosphatase 91 U/L (45-117); BUN Blood Urea Nitrogen 18 mg/dL (7-18); Bicarbonate 27 mmol/L (21-32); Bilirubin Total 0.4 mg/dL (0.2-1.0); Ferritin 578.9 ng/mL (8-388); Glucose Level 217 mg/dL (74-106); Magnesium 2.4 mg/dL (1.8-2.4); Potassium 4.2 mmol/L (3.5-5.1); Protein, Total 6.7 g/dL (6.4-8.2); Sodium Level 135 mmol/L (136-145)
[2021-01-15 07:49] LABS: C-Reactive Protein < 2.90 mg/L (<3.00)
[2021-01-15] MEDS: VITAMIN D 1000 UNIT TAB PO SCH (07:53)
[2021-01-15] MEDS: ASCORBIC ACID 500 MG TABLET PO SCH ×3 (07:54→16:51)
[2021-01-15] MEDS: APIXABAN 5 MG TABLET PO SCH (07:55)
[2021-01-15] MEDS: ZINC SULFATE 220 MG CAP PO SCH (07:55)
[2021-01-15] MEDS: THIAMINE HCL 100 MG TABLET PO SCH (07:55)
[2021-01-15] MEDS: METHYLPREDNISOLONE 40 MG INJ IV SCH ×2 (07:56→14:00)
[2021-01-15 09:26] LABS: Blood Morphology Comment NOT SEEN (NOT SEEN); Platelet Estimate ADEQ
[2021-01-15] MEDS: PROMETH/COD 6.25/10MG SYRUP 5ML PO PRN (14:00)
[2021-01-15 15:48] VITALS: O2SAT 95
--- NOTE | 2021-01-15 16:46 | P.DS ---
Admission Date: 01/05/21 Discharge Date: 01/15/21 Disposition: ROUTINE DISCHARGE Discharge Condition: FAIR Reason for Admission: COVID-19 pneumonia Consultations: Pulmonary. - Problems (1) Acute respiratory failure with hypoxia Current Visit: Yes Status: Acute (2) Pneumonia due to COVID-19 virus Current Visit: Yes Status: Acute Brief History of Present Illness: 40-year-old female with history of asthma, obesity presented to emergency department for shortness of breath. Patient reported increasing shortness of breath over the course of last 1 week. Patient tested positive for Covid in the ED. Labs significant for glucose 145 ferritin 1669 AST 191 ALT 219 C-reactive protein 39 D-dimer 584 platelet count 110. Patient saturating in the high 80s on room air. Chest x-ray reported bilateral pulmonary infiltrate, confirmed by CTA thorax. Patient admitted for further management of COVID pneumonia. Hospital Course: Patient admitted to the medical floor and treated with IV steroid, bronchodilators, vitamin supplementation and Eliquis for DVT prophylaxis. She clinically got worse and ended up on high-flow oxygen. Patient seen by pulmonary who assisted with management. She was eventually weaned off high-flow oxygen to oxygen by nasal cannula. Her respiratory condition continued to improve, patient eventually tolerated 1 L oxygen by nasal cannula both at rest and with ambulation. Patient deemed stable for discharge. She is discharged with oral prednisone and vitamin supplementation and aspirin for DVT prophylaxis Vital Signs/Physical Exam: Temp Pulse Resp BP Pulse Ox 98.4 F 83 22 H 96/59 L 95 01/15/21 12:00 01/15/21 12:00 01/15/21 12:00 01/15/21 12:00 01/15/21 12:00 General: Alert, In no apparent distress, Oriented x3 Neck: JVD not distended Respiratory: Other (Nonlabored breathing) Cardiovascular: No edema, Regular rate/rhythm, Normal S1 S2 Gastrointestinal: Soft and benign, Non-distended Musculoskeletal: No swelling Integumentary: No rashes Neurological: Normal strength at 5/5 x4 extr Laboratory Data at Discharge: WBC 22.00 K/uL (4.3-10.9) H* D 01/15/21 06:37 Hgb 14.3 g/dL (12.0-15.0) 01/15/21 06:37 Hct 42.3 % (36.0-45.0) 01/15/21 06:37 Plt Count 291 K/uL (152-406) 01/15/21 06:37 PT 13.2 SECONDS (9.5-12.5) H 01/04/21 23:59 INR 1.15 01/04/21 23:59 Sodium 135 mmol/L (136-145) L 01/15/21 06:37 Potassium 4.2 mmol/L (3.5-5.1) 01/15/21 06:37 BUN 18 mg/dL (7-18) 01/15/21 06:37 Creatinine 0.62 mg/dL (0.55-1.3) 01/15/21 06:37 Glucose 217 mg/dL (74-106) H 01/15/21 06:37 Magnesium 2.4 mg/dL (1.8-2.4) 01/15/21 06:37 Total Bilirubin 0.4 mg/dL (0.2-1.0) 01/15/21 06:37 AST 24 U/L (15-37) 01/15/21 06:37 ALT 139 U/L (12-78) H 01/15/21 06:37 Alkaline Phosphatase 91 U/L (45-117) 01/15/21 06:37 Home Medications: Albuterol Inhaler [Ventolin Inhaler*] 2 puff IH Q6HP PRN 01/05/21 Albuterol Neb [Proventil 0.083% Neb Soln] 1 amp NEB Q6HP PRN 01/05/21 Ascorbic Acid [Vitamin C*] 1,000 mg PO TID #180 tablet 01/15/21 Aspirin [Aspirin EC] 162 mg PO DAILY #60 tablet. 01/15/21 Benzonatate [Tessalon Perle*] 100 mg PO TID PRN #30 cap 01/15/21 Cholecalciferol (Vitamin D3) [Vitamin D3] 4,000 unit PO DAILY #60 capsule 01/15/21 Thiamine HCl [Vitamin B-1*] 200 mg PO DAILY #60 tablet 01/15/21 Zinc Sulfate [Zinc Sulfate*] 220 mg PO DAILY #30 cap 01/15/21 predniSONE [Deltasone] 20 mg PO BID #21 tab 01/15/21 New Medications: Aspirin [Aspirin EC] 162 mg PO DAILY #60 tablet. predniSONE [Deltasone] 20 mg PO BID #21 tab Benzonatate [Tessalon Perle*] 100 mg PO TID PRN #30 cap PRN Reason: Cough Thiamine HCl [Vitamin B-1*] 200 mg PO DAILY #60 tablet Ascorbic Acid [Vitamin C*] 1,000 mg PO TID #180 tablet Cholecalciferol (Vitamin D3) [Vitamin D3] 4,000 unit PO DAILY #60 capsule Zinc Sulfate [Zinc Sulfate*] 220 mg PO DAILY #30 cap Diet: ADA Activity: Ad alejandro Followup: Khurram Anne MD [ACTIVE - CAN ADMIT] - 1 Week NONE,NONE [Primary Care Provider] - Time spent managing pt's care (in minutes): 38
[2021-01-15 17:02] VITALS: BP 106/61; TEMP 97.1
== END 2021-01-15 18:25 | disposition home or self-care (01) | DRG 177 ==
LOC: ER 22:20 → ERHOLD 01-05 02:27 → 4TH 01-05 21:36
PROVIDERS: ADMIT Internal Medicine; ATTEND Internal Medicine
PROC: 5A09557 Assistance with Respiratory Ventilation, Greater than 96 Consecutive Hours, Continuous Positive Airway Pressure (ICD-10-PCS; principal; 2021-01-05)
DX: U07.1 COVID-19 (principal); J96.01 Acute respiratory failure with hypoxia; J12.82 Pneumonia due to coronavirus disease 2019; Z68.43 Body mass index [BMI] 50.0-59.9, adult; E66.9 Obesity, unspecified; J45.909 Unspecified asthma, uncomplicated; T38.0X5A Adverse effect of glucocorticoids and synthetic analogues, initial encounter; R73.9 Hyperglycemia, unspecified; Z79.899 Other long term (current) drug therapy; Z90.710 Acquired absence of both cervix and uterus; Z56.0 Unemployment, unspecified; Z79.52 Long term (current) use of systemic steroids; Z79.82 Long term (current) use of aspirin
CPT/HCPCS: 36415; 71045; 71275; 80048; 80053; 80076; 81003; 81015; 81025; 82728; 82805; 82947; 83735; 83880; 84145; 84484; 85025; 85027; 85379; 85610; 86140; 87070; 87081; 87086; 87088; 87804; 93005; 94002; 94003; 94760; 96361; 96374; 96375; 97110; 97116; 97161; 97530; 99284; J0696; J1650; J2270; J2405; J2920; J2930; J7030; Q9967; U0003